=== PATIENT | male | born 1960 | race Hispanic/Latino ===

== ENCOUNTER → 2024-04-09 | Outpatient (REF) | payer BC ==
[~2024-04-09] MED LIST: DICYCLOMINE HCL20 MG PO; FINASTERIDE5 MG PO; IOPAMIDOL 370 MG/ML 100 ML INFUS..BTL INJ ONE; OMEPRAZOLE20 MG PO; ONDANSETRON ODT8 MG PO; STOOL SOFTENER50 MG PO; TYLENOL SINUS1 EAC1 PO
[2024-04-09 08:38] LABS: CREATININE, SERUM 0.87 mg/dL (0.72-1.25)
== END ==
LOC: CT 07:33
PROVIDERS: ATTEND Urology
DX: D41.00 Neoplasm of uncertain behavior of unspecified kidney (principal)
CPT/HCPCS: 36415; 74170; 82565; 84520; Q9967